=== PATIENT | male | born 1970 | race Two or more races ===

== ENCOUNTER 2016-04-12 22:46 | Emergency (ER) | payer MEDICAID ==
[~2016-04-12] VITALS: Ht 167.6 cm; Wt 81.6 kg
[2016-04-13 07:43] VITALS: BP 152/89
[2016-04-13] MEDS ORDERED: BACITRACIN-POLYMYXIN B TOPICAL OINT UD TOP ONE (08:06)
[2016-04-13] MEDS ORDERED: KETOROLAC TROMETH 60MG/2ML VIAL IM ONE (08:15)
[2016-04-13] MEDS ORDERED: NEOMYCIN-BACITRACIN-POLYM UNITDOSE PKG TOP OINT TOP ONE (08:15)
[2016-04-13] MEDS ORDERED: TETANUS-DIPTH-ACEL PERTUSSIS 0.5ML SYRG IM ONE (08:15)
== END 2016-04-13 08:38 | disposition home or self-care (01) ==
LOC: ER 23:09
DX: S61.201A Unspecified open wound of left index finger without damage to nail, initial encounter (principal); W27.8XXA Contact with other nonpowered hand tool, initial encounter; Y93.89 Activity, other specified; Y99.8 Other external cause status; Y92.89 Other specified places as the place of occurrence of the external cause
CPT/HCPCS: 90471; 90715; 96372; 99284; J1885